=== PATIENT | female | born 1955 | race Caucasian/White ===

== ENCOUNTER 2017-05-19 16:20 | Inpatient (IN) ==
[2017-05-19] MEDS ORDERED: NS 1,000 ML IV ONE ×2 (17:31→22:20)
[2017-05-19] MEDS ORDERED: ONDANSETRON 4 MG/2 ML INJECTION IVP ONE (17:31)
[2017-05-19] MEDS ORDERED: KETOROLAC 30 MG/ML INJECTION IVP ONE (17:31)
[2017-05-19] MEDS: SALINE FLUSH 10ml SYRINGE IVF PRN (18:05)
[2017-05-19] MEDS ORDERED: IOHEXOL 300mg/ml 100ml INJECTION ONE (20:25)
[2017-05-19] MEDS ORDERED: NS 100 ML ONE (20:25)
[2017-05-19] MEDS ORDERED: SALINE FLUSH 10ml SYRINGE ONE (20:25)
[2017-05-19] MEDS ORDERED: HYDROMORPHONE 2 MG/ML INJECTION IVP ONE (21:21)
--- NOTE | 2017-05-19 21:25 | Emergency Department Report ---
Abdominal Pain HPI - General Chief Complaint: Abdominal Pain Stated Complaint: Severe Abdominal Pain Time Seen by Provider: 05/19/17 17:31 - History of Present Illness HPI narrative: 61-year-old female with onset of abdominal pain starting yesterday. She felt fine earlier in the morning yesterday, but by evening began developing cramping abdominal pain. Had one episode of diarrhea, no vomiting. She did have elevated temperature yesterday evening which seemed to resolve overnight. Now pain is increasing and has gone from 2 up until now it is an 8. She feels dehydrated. - Related Data Home Medications Medication Instructions Recorded Confirmed cetirizine 10 mg tablet 10 mg PO HS 04/27/17 05/19/17 doxycycline monohydrate 50 mg 50 mg PO HS 30 Days 04/27/17 05/19/17 capsule omega-3 fatty acids 500 mg capsule 1,000 mg PO HS #0 cap 04/27/17 05/19/17 Previous Rx's Medication Instructions Recorded sertraline 50 mg tablet 50 mg PO Q24H #90 tab 04/27/17 cyclobenzaprine 10 mg tablet 10 mg PO HS PRN #10 tab 05/14/17 naproxen 500 mg tablet 500 mg PO Q12H PRN #30 tab 05/14/17 Docusate Sodium [Colace] 100 mg PO BID capsule 05/23/17 Levofloxacin [Levaquin] 750 mg PO HS #7 tablet 05/23/17 MetroNIDAZOLE [Flagyl] 500 mg PO BIDWM #14 tablet 05/23/17 Allergies Allergy/AdvReac Type Severity Reaction Status Date / Time Penicillins Allergy Unknown Verified 05/20/17 00:06 amoxicillin Allergy Verified 05/20/17 00:06 Review of Systems All systems: reviewed and negative except as stated FOR[facility]LY [facility] Medical History (Last Updated 04/27/17 @ 18:38 by Marianne Voss APRN) Benign microscopic hematuria (Chronic Medical) Cancer of left breast (Chronic Medical) Hypercholesteremia (Chronic Medical) IFG (impaired fasting glucose) (Chronic Medical) Obesity (Chronic Medical) Osteopenia (Chronic Medical) Right radial head fracture (Resolved Medical) Surgical History: No abdominal surgery Family History: Family History Father , 67 Stomach cancer Mother , 99 CHF (congestive heart failure) HTN (hypertension) Sister Breast cancer - Social History Smoking status: Never smoker Substance use type: does not use Physical Exam - Limitations Limitations: no limitations - General General appearance: alert - Normal Exams: Head:: Normocephalic without trauma Chest/Respirations:: Clear all centeno, with good airflow, and symmetry bilaterally Cardiovascular:: Regular rate and rhythm, without murmur or gallop, Pulses 2+ all extremities, capillary refill, <2 seconds all extremities - Abdominal Exam Abdominal exam: Present: soft, distention, tenderness, diminished bowel sounds Course Vital Signs Temperature 98.3 F 05/19/17 16:25 Pulse Rate 106 H 05/19/17 16:25 Respiratory Rate 20 05/19/17 16:25 Blood Pressure 124/57 05/19/17 16:25 Pulse Oximetry 98 05/19/17 16:25 Temperature 98.3 F 05/19/17 16:25 Pulse Rate 110 H 05/19/17 20:30 Respiratory Rate 20 05/19/17 16:25 Blood Pressure 113/60 05/19/17 20:00 Pulse Oximetry 97 05/19/17 20:30 Abdominal Pain - MDM Narrative Medical decision making narrative: Patient has significant pain and discomfort. She also looks ill. Labs were obtained and x-ray completed. Free air noted under right diaphragm. CT abdomen obtained which shows perforated sigmoid diverticulitis with pneumoperitoneum. White count was normal. Patient was afebrile. Surgery was consulted.. Patient was given levofloxacin IV, also given Toradol 30 mg IV, Dilaudid 0.5 mg IV and Zofran 4 mg IV. Patient had repeat Dilaudid dose. Was transferred to surgical floor in relative comfort. - Differential Diagnosis Differential diagnosis: Likely: abdominal pain, acute appendicitis, calculus of kidney, constipation, diverticulitis, gastroenteritis, other, pancreatitis, small bowel obstruction - Medical Records Attestation: I reviewed the patient's medical records. - Lab Data Attestation: I reviewed the patient's lab results. Result diagrams: 05/22/17 04:15 05/20/17 06:26 Lab Results 05/19/17 05/19/17 05/19/17 Range/Units 18:04 18:04 19:06 WBC 17.0 H (4.5-11.0) T/MM3 RBC 4.36 (4.00-5.20) M/MM3 Hgb 13.1 (12-16) GM/DL Hct 39.3 (36-46) % MCV 90.1 (80-100) UM3 MCH 30.0 (26-34) UUG MCHC 33.3 (31-37) GM/DL RDW Std Deviation 42.8 (36.9-50.2) FL Plt Count 151 (130-400) T/MM3 MPV 10.4 (9.4-12.4) UM3 Immature Gran % (Auto) Not performed Neut % (Auto) Not performed Lymph % (Auto) Not performed [place] % (Auto) Not performed Eos % (Auto) Not performed Baso % (Auto) Not performed Neut # Not performed Lymph # Not performed Childress # Not performed Eos # Not performed Baso # Not performed Abs Immat Gran (auto) Not performed Neutrophils % (Manual) 75.0 H (33-66) % Band Neutrophils % 8.0 H (0-6) % Lymphocytes % (Manual) 8.0 L (23-45) % Reactive Lymphs % 6.0 H (0-0) % Monocytes % (Manual) 3.0 (0-9.0) % Neutrophils # (Manual) 12.8 H (1.8-7.7) T/MM3 Band Neutrophils # 1.4 T/MM3 Lymphocytes # (Manual) 1.4 (1-4.8) T/MM3 Abs React Lymphs (Man) 1.0 H (0-0) T/MM3 Monocytes # (Manual) 0.5 (0-0.8) T/MM3 RBC Morph Comment Normal Turbidity < 20 (0-20) Sodium 137 (134-144) MEQ/L Potassium 4.0 (3.6-5) MEQ/L Chloride 102 (98-107) MEQ/L Carbon Dioxide 27 (22-30) MEQ/L Anion Gap 8 (5-15) MEQ/L BUN 16.0 (7-17) MG/DL Creatinine 0.7 (0.7-1.2) MG/DL GFR Calculation 85 BUN/Creatinine Ratio 23 (6-26) RATIO Glucose 139 H (65-110) MG/DL Calculated Osmolality 267 (261-280) MOSM/KG Calcium 9.0 (8.4-10.2) MG/DL Total Bilirubin 0.90 (0.20-1.30) MG/DL Icterus Index < 2 (0-7) AST 19 (14-36) U/L ALT 41 (9-52) U/L Alkaline Phosphatase 66 (38-126) U/L Total Protein 7.0 (6.3-8.2) G/DL Albumin 4.3 (3.5-5.0) G/DL Globulin 2.7 (2.4-3.6) G/DL Albumin/Globulin Ratio 1.6 (1.1-2.2) RATIO Lipase 32 (23-300) U/L Specimen Hemolysis < 15 (0-25) Ur Collection Type Urine, clean catch Urine Color Yellow (YELLOW) Urine Clarity Clear Urine pH 7.0 (5.0-8.0) Ur Specific [place] 1.010 L (1.015-1.025) Urine Protein Trace A (NEGATIVE) Urine Glucose (UA) Negative (NEGATIVE) Urine Ketones Negative (NEGATIVE) Urine Occult Blood 1+ A (NEGATIVE) Urine Nitrate Negative (NEGATIVE) Urine Bilirubin Negative (NEGATIVE) Urine Urobilinogen 0.2 (NORMAL) EU/DL Ur Leukocyte Esterase Negative (NEGATIVE) Urine RBC 3-5 H (0-3) /HPF Urine WBC 0-1 (0-5) /HPF Ur Squamous Epith Cells 0-5 Urine Bacteria Trace H (NEGATIVE) Ur Culture Indicated? Cult not indicated - Radiology Data Attestation: I reviewed the patient's radiology results. Disposition Clinical Impression: perf, bowel perforation [place]: 02 [place] [facility] Condition: Stable Time of Disposition: 16:15 - Seen By: physician
[2017-05-19] MEDS: HYDROMORPHONE 2 MG/ML INJECTION IVP PRN (23:50)
[2017-05-19] MEDS ORDERED: METOCLOPRAMIDE 10mg/2ml INJECTION IVP PRN (23:53)
[2017-05-20] MEDS: LEVOFLOXACIN PB 750 MG/150 ML BAG IV SCH (00:51)
[2017-05-20] MEDS: MetroNIDAZOLE PB 500 MG/100 ML BAG IV SCH ×3 (00:52→23:48)
[2017-05-20] MEDS: LR 1,000 ML IV SCH ×4 (03:12→21:20)
[2017-05-20] MEDS: HYDROMORPHONE 2 MG/ML INJECTION IVP PRN ×4 (03:38→18:54)
[2017-05-20] MEDS: ONDANSETRON 4 MG/2 ML INJECTION IVP PRN ×2 (08:04→19:07)
[2017-05-20] MEDS: SALINE FLUSH 10ml SYRINGE IVF PRN (08:04)
--- NOTE | 2017-05-20 08:10 | CT Scan Report ---
Indication: Mid to lower abdominal pain and nausea for one day PROCEDURE: CT abdomen pelvis w con: Encounter: Initial Comparison: Renal CT dated May 22, 2011 Technique: Axial CT images were performed through the abdomen and pelvis after the administration of intravenous contrast. Coronal and sagittal two-dimensional reformats. Automated Exposure Control and Iterative Reconstruction dose reducing techniques were utilized. Contrast: Omnipaque 300 100 mL Findings: Mild atelectasis in the lung bases. There is significant free intraperitoneal air in the upper abdomen along of the liver margin and beneath the right hemidiaphragm. The liver shows small probable cysts along the gallbladder fossa region primarily. No enhancing liver mass or bile duct dilatation. The gallbladder is mildly distended but otherwise normal. The spleen, pancreas and adrenal glands are within normal limits. The kidneys are normal. Bilateral extrarenal pelves. Bladder is grossly normal. No significant free pelvic fluid. Uterus is unremarkable. There is inflammatory change and stranding surrounding the mid sigmoid colon with foci of extraluminal gas nearby. This is the apparent source of the perforation and free air. Air tracks along the mesentery into the ventral abdomen and omental area extending along the left paracolic gutter as well. No evidence of a bowel obstruction. Bone windows show mild degenerative change in the spine. Impression: Perforated sigmoid diverticulitis with pneumoperitoneum. Emergent surgical consultation is recommended. There is a preliminary report by [facility]. .
--- NOTE | 2017-05-20 08:20 | XRay Report ---
Indication: Abd pain PROCEDURE: XR KUB w upright: Encounter: Initial Comparison: CT abdomen and pelvis from the same date Findings: Moderate amount of free intraperitoneal air beneath the right hemidiaphragm. Air-fluid levels seen in the small bowel. Nonobstructive bowel gas pattern. Moderate stool in the colon. Mild degenerative change and scoliosis in the spine. Impression: Free intraperitoneal air consistent with a perforated viscus. Please see the abdominal CT report for further details. .
--- NOTE | 2017-05-20 12:33 | General Surg History&Physical ---
[facility] Medical History (Last Updated 04/27/17 @ 18:38 by Marianne Voss APRN) Benign microscopic hematuria (Chronic Medical) Cancer of left breast (Chronic Medical) Hypercholesteremia (Chronic Medical) IFG (impaired fasting glucose) (Chronic Medical) Obesity (Chronic Medical) Osteopenia (Chronic Medical) Right radial head fracture (Resolved Medical) Medical History Updates: Edits to Cancer of left breast (Chronic Medical): Onset: 12/07/2007. Comment: Treatment: mastectomy, chemotherapy, hormone therapy. Involved 1 lymph node. Oncologist: Dr. Rafat Meyer. Add: Stress incontinence (chronic). Shingles - 05/2013 (resolved). Bilateral elbow fractures (resolved). Left wrist fracture (resolved). Comment: in high school. Anxiety (Chronic) Surgical History: * Left modified radical mastectomy - 12/2007. * Colonoscopy [address] Adis Trejo. Reportedly normal. * Port-a-cath placement - 2007. Removed later. 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 Medications Home Medications Medication Instructions Recorded Confirmed Type cetirizine 10 mg tablet 10 mg PO HS 04/27/17 05/19/17 History doxycycline monohydrate 50 mg 50 mg PO HS 30 Days 04/27/17 05/19/17 History capsule omega-3 fatty acids 500 mg capsule 1,000 mg PO HS #0 cap 04/27/17 05/19/17 History Allergies Allergy/AdvReac Type Severity Reaction Status Date / Time Penicillins Allergy Unknown Verified 05/20/17 00:06 amoxicillin Allergy Verified 05/20/17 00:06 Review of Systems 10-point ROS: negative except for HPI and the following: - Genitourinary Genitourinary: Present: blood in urine (microscopic hematuria - has seen Dr. Hilario ), other (stress incontinence) - Psychiatric Psychiatric: Present: anxiety - Vital Signs Last Vital Signs Temp 98.2 F 05/20/17 07:39 Pulse 91 07/12/17 07:52 Resp 16 05/20/17 07:52 BP 121/56 05/20/17 07:39 Pulse Ox 95 05/20/17 07:52 - Laboratory Result Diagrams: 05/21/17 13:23 05/20/17 06:26 General Surgery Results - Results Labs: 05/20/17 03:49 05/20/17 06:26 Sepsis Assessment - Evaluation Sepsis screening result: Sepsis Risk Hospital Course Summary Disclaimer: The visit summary below is not to be considered part of the above Progress Note.
[2017-05-20] MEDS: KETOROLAC 30 MG/ML INJECTION IVP PRN ×2 (14:41→22:00)
[2017-05-20] MEDS ORDERED: CYCLOBENZAPRINE 10 MG TABLET PO PRN (17:29)
[2017-05-20] MEDS ORDERED: ACETAMINOPHEN 325 MG TABLET PO PRN (17:30)
[2017-05-20] MEDS: CETIRIZINE 10 MG TABLET PO SCH (21:57)
[2017-05-21] MEDS: ESZOPICLONE 2 MG TABLET PO PRN ×2 (00:02→22:53)
[2017-05-21] MEDS: LEVOFLOXACIN PB 750 MG/150 ML BAG IV SCH (01:02)
[2017-05-21] MEDS: ONDANSETRON 4 MG/2 ML INJECTION IVP PRN ×2 (03:00→23:18)
[2017-05-21] MEDS: HYDROMORPHONE 2 MG/ML INJECTION IVP PRN ×2 (03:03→08:20)
[2017-05-21] MEDS: LR 1,000 ML IV SCH ×6 (04:13→23:23)
[2017-05-21] MEDS: MetroNIDAZOLE PB 500 MG/100 ML BAG IV SCH ×2 (10:43→23:20)
[2017-05-21] MEDS ORDERED: LR 1,000 ML IV SCH (14:00)
--- NOTE | 2017-05-21 16:33 | History and Physical ---
DATE OF VISIT 05/20/2017 ATTENDING PHYSICIAN Baldemar Newton MD REASON FOR ADMISSION Perforated diverticulitis. HISTORY OF PRESENT ILLNESS Gricel is a 61-year-old female who had come to the emergency department for evaluation of abdominal pain. She had woken up about three in the morning and had noticed some lower abdominal pain. She thought that this was from a new medication that she had been taking since constipation was listed as a side effect. She said that she was going to skip her dose of medication when she woke up in the morning and went back to bed. When she awoke she felt like she could go to work but when she got to work she was lightheaded and ended up going home. She had increased abdominal pain and so she went home and contacted [facility]. They had recommended either convenient care or emergency department evaluation unless she wanted to wait to be seen the following day. She was having cramping pain and did have an episode of diarrhea. She did not have any vomiting. She felt like her pain was 8-9/10 in severity by the time she got to the emergency department. Workup there included a CBC that had shown a white blood cell count of 17.0. This prompted a CT scan of the abdomen and pelvis that showed free air on the preliminary report. I was contacted by the emergency department physician and accepted admission of the patient last evening by telephone. The patient had been hemodynamically stable by vital signs and after receiving a dose of Dilaudid she had told Dr. De Anda that she was in "a warm and happy place". She had received an additional bolus of fluid and heart rate had responded appropriately. PHYSICAL EXAMINATION VITAL SIGNS: See EMR report. GENERAL: The patient is awake and alert. She is in mild distress secondary to the pain. She is lying in the bed comfortably. HEENT: Sclerae clear. Extraocular muscles intact. NECK: Supple with a midline trachea. No lymphadenopathy or thyromegaly are noted. HEART: Regular rate and rhythm. LUNGS: Clear to auscultation bilaterally. ABDOMEN: Soft, obese, nondistended. She is tender in the lower quadrants but does not have any guarding or rebound noted. EXTREMITIES: No clubbing, cyanosis or edema. NEURO: Cranial nerves II-XII are grossly intact. PSYCHIATRIC: Normal mood and affect. LABORATORY DATA White blood cell count had decreased to 12.[address] scan the abdomen and pelvis was personally reviewed by me. It did show free air with air above the right diaphragm. There was some inflammation around the sigmoid colon. There was no significant fluid in the pelvis or evidence of abscess formation in the left lower quadrant. KUB was also personally reviewed by me from last night and there was free air in the right hemidiaphragm. IMPRESSION 1. Sepsis based on white blood cell count elevation and pulse greater than 90. 2. Perforated sigmoid diverticulitis with free air but no evidence of significant abdominal contamination. 3. Hypercholesterolemia - chronic. 4. Obesity - chronic with BMI of 31.5. PLAN 1. I think, given the patient's clinical picture, she would be an appropriate candidate for medical management. She has already been started on IV Levaquin and Flagyl due to her PENICILLIN ALLERGY. 2. I did offer her diagnostic laparoscopy with peritoneal lavage and possible drain placement. For now she is not interested in surgery as long as she continues to improve. 3. I did explain that if her symptoms worsen and she developed worsening tachycardia, hypotension, fever, or increasing white count, she may need operative intervention including surgery up to an open sigmoid resection with colostomy formation. 4. I will keep her n.p.o. 5. Continue IV fluids for resuscitation. 6. Monitor clinical progress. For additional components of the history and physical, see the electronic version entered into the EMR. ODILIA
--- NOTE | 2017-05-21 19:58 | Progress Note ---
DATE OF VISIT 05/21/2017 REASON FOR VISIT Follow perforated diverticulitis. SUBJECTIVE Gricel feels better today. She feels like her abdominal pain has subsided. She is thirsty. She has been ambulating. OBJECTIVE VITAL SIGNS: Temperature 99.0, pulse 69, blood pressure 121/63, respiratory rate 18, oxygen saturation 98% on 1 liter nasal cannula. GENERAL: The patient is awake and alert, in no acute distress. She is resting in bed. HEART: Regular rate and rhythm. LUNGS: Clear to auscultation bilaterally. ABDOMEN: Soft, minimally tender in the left lower quadrant and right lower quadrant. No guarding or rebound are noted. EXTREMITIES: No clubbing, cyanosis or edema. LABORATORY DATA White blood cell count has decreased to normal range at 9.5. She had 69.8% neutrophils. ASSESSMENT 1. Perforated sigmoid diverticulitis with free air - improving with IV antibiotics. 2. Sepsis - resolved with normalization of critical criteria. 3. Hypercholesterolemia - chronic. 4. Obesity - chronic. PLAN 1. Continue IV antibiotics. 2. Decrease IV fluids. 3. Since she continues to improve clinically I will start her on a clear liquid diet. 4. Monitor clinical progress. [email or web address]
[2017-05-21] MEDS: CETIRIZINE 10 MG TABLET PO SCH (23:15)
[2017-05-22] MEDS: LEVOFLOXACIN PB 750 MG/150 ML BAG IV SCH (00:52)
[2017-05-22] MEDS: LR 1,000 ML IV SCH ×2 (04:18→13:54)
[2017-05-22] MEDS: MetroNIDAZOLE PB 500 MG/100 ML BAG IV SCH (11:02)
[2017-05-22] MEDS ORDERED: DOCUSATE SODIUM 100 MG CAPSULE PO ONE (12:05)
[2017-05-22] MEDS ORDERED: BISACODYL 10 MG SUPPOSITORY RECTALLY PRN (12:07)
[2017-05-22] MEDS: DOCUSATE SODIUM 100 MG CAPSULE PO SCH (21:39)
[2017-05-22] MEDS: CETIRIZINE 10 MG TABLET PO SCH (21:39)
[2017-05-22] MEDS: ESZOPICLONE 2 MG TABLET PO PRN (21:40)
[2017-05-23] MEDS: LR 1,000 ML IV SCH ×2 (00:09→11:52)
[2017-05-23] MEDS: MetroNIDAZOLE PB 500 MG/100 ML BAG IV SCH ×2 (00:09→11:52)
[2017-05-23] MEDS: LEVOFLOXACIN PB 750 MG/150 ML BAG IV SCH (01:10)
[2017-05-23 07:47] VITALS: RESP 16
--- NOTE | 2017-05-23 09:29 | Progress Note ---
DATE OF VISIT 05/22/2017 REASON FOR VISIT Follow diverticulitis. OBJECTIVE Jeremy is doing well. She feels like her pain is totally resolved. She does feel bloated and is not wanting to advance her diet much today. Her nurse reports that they are having some difficulty encouraging her to ambulate in the halls. OBJECTIVE VITAL SIGNS: Temperature 98.4, pulse 88, blood pressure 137/67, respiratory rate 16, oxygen saturation 94% on room air. GENERAL: The patient is awake and alert, in no acute distress. HEART: Regular rate and rhythm. LUNGS: Clear to auscultation bilaterally. ABDOMEN: Soft, nontender, mildly distended, obese. LABORATORY DATA White blood cell count is normal at 7.7 with 61% neutrophils. ASSESSMENT 1. Perforated sigmoid diverticulitis with free air--continued clinical improvement. 2. Hypercholesterolemia--chronic. 3. Obesity--chronic. PLAN 1. Continue IV antibiotics for treatment of her diverticulitis since she is not advanced to a regular diet yet. 2. I will leave her IV fluids the same since she has not taken in much via the oral route. 3. I will advance her to a full liquid diet but not a regular diet based on her bloating. 4. Continue to follow progress tomorrow. 5. I will add docusate twice a day. 6. I will add a Dulcolax suppository daily p.r.n. to see if this will help stimulate a bowel movement. ODILIA
[2017-05-23] MEDS: DOCUSATE SODIUM 100 MG CAPSULE PO SCH (10:03)
[2017-05-23] MEDS ORDERED: MetroNIDAZOLE 500 MG TABLET PO SCH (12:00)
[2017-05-23 15:31] VITALS: BP 126/63; PULSE 60; TEMP 98.9; O2SAT 96
--- NOTE | 2017-05-23 15:52 | Discharge Instructions ---
Discharge Plan - [facility] Rec/Dispo Peng Instructions: Diverticulitis (DC), Diverticulitis Diet (DC) Prescriptions: New Docusate Sodium [Colace] 100 mg PO BID capsule Levofloxacin [Levaquin] 750 mg PO HS #7 tablet MetroNIDAZOLE [Flagyl] 500 mg PO BIDWM #14 tablet Continue doxycycline monohydrate 50 mg capsule 50 mg PO HS 30 Days cetirizine 10 mg tablet 10 mg PO HS naproxen 500 mg tablet 500 mg PO Q12H PRN #30 tab PRN Reason: pain, moderate cyclobenzaprine 10 mg tablet 10 mg PO HS PRN #10 tab PRN Reason: pain omega-3 fatty acids 500 mg capsule 1,000 mg PO HS #0 cap - Disposition 01 Discharged Home, Self-Care
[2017-05-23] MEDS ORDERED: LEVOFLOXACIN 750 MG TABLET PO SCH (18:00)
--- NOTE | 2017-05-23 19:40 | Progress Note ---
DATE OF VISIT 05/23/2017 REASON FOR VISIT Follow diverticulitis. OBJECTIVE Jeremy feels like she is doing well today. She denies pain. She has been walking in the halls. She has tolerated the full liquid diet and does feel like she could tolerate regular food. She did have a bowel movement. She has been passing flatus. OBJECTIVE VITAL SIGNS: Temperature 98.0, pulse 49, blood pressure 128/76, respiratory rate 16. Oxygen saturation 95% on room air. GENERAL: The patient is awake and alert in no acute distress. HEART: Bradycardic with irregular rhythm. LUNGS: No labored breathing. ABDOMEN: Soft, nontender, nondistended, obese. EXTREMITIES: No clubbing, cyanosis, or edema. IMPRESSION 1. Perforated sigmoid diverticulitis with free air--resolving appropriately. 2. Hypercholesterolemia--chronic. 3. Obesity--chronic. PLAN 1. Advance to a regular diet for lunch and see if she tolerates this. 2. Discontinue IV fluids. 3. If she does well with lunch, then I think she could be switched to oral antibiotics for another week and be sent home. 4. She will need a colonoscopy in about six weeks. ODILIA
--- NOTE | 2017-05-23 20:12 | Discharge Summary ---
ATTENDING PHYSICIAN Baldemar Newton MD REASON FOR ADMISSION Perforated diverticulitis. DISCHARGE DIAGNOSES 1. Perforated diverticulitis with free air. 2. Sepsis secondary to perforated diverticulitis. 3. Hypercholesterolemia--chronic. 4. Obesity with BMI of 31.5--chronic. CONSULTATIONS None. PROCEDURES None. BRIEF HOSPITAL COURSE The patient was admitted on the evening of 05/19/2017 after evaluation in the Emergency Department had shown free air on a CT scan. She was started on IV antibiotics with Levaquin and Flagyl due to her penicillin allergy. She had a nonsurgical abdomen in the Emergency Department and improved overnight by the time I first evaluated her on 05/20/2017. She opted for continued nonoperative management and observation. Her white count had decreased to 12.5 by hospital day #2. She was kept n.p.o. and was given IV fluids for resuscitation. On hospital day #3, she was feeling better and her white count had returned to the normal range. She was continued on IV antibiotics, but her IV fluids were decreased. She was started on a clear liquid diet. On hospital day #4, she continued to improve but was not quite ready for a regular diet so she was advanced to a full liquid diet. She had Colace started as well as a Dulcolax suppository, and this did stimulate a bowel movement. On hospital day #5, she was feeling much better and remained pain free. She was advanced to a regular diet and switched over to oral antibiotics. She was then dismissed home. DISPOSITION Home by private vehicle. CONDITION ON DISCHARGE Good. DISCHARGE INSTRUCTIONS DIET: Regular diet as tolerated. ACTIVITY: As tolerated. WOUND CARE None required. MEDICATIONS See discharge medical reconciliation. FOLLOWUP Patient should follow up with me in about one month to arrange a colonoscopy in six to eight weeks once her diverticulitis has fully resolved. Eighteen minutes of time was spent for coordination of discharge with education of the patient and her , completion of scripts, and discharge orders. ODILIA
== END 2017-05-23 17:30 | disposition home or self-care (01) | DRG 872 ==
LOC: ED 16:20 → SRG 23:21
PROVIDERS: ADMIT Surgery; ATTEND Surgery

== ENCOUNTER 2017-06-05 22:09 | Inpatient (IN) ==
[2017-06-05] MEDS ORDERED: NS 1,000 ML IV ONE (22:15)
[2017-06-05] MEDS ORDERED: LEVOFLOXACIN PB 750 MG/150 ML BAG IV ONE (22:15)
--- NOTE | 2017-06-05 22:15 | Emergency Department Report ---
Abdominal Pain HPI - General Stated Complaint: Abdominal Pain Time Seen by Provider: 06/05/17 22:14 Source: patient, family Mode of arrival: ambulatory Limitations: no limitations - History of Present Illness HPI narrative: Patient is a 62-year-old female, was recently hospitalized 05/19 for acute diverticulitis with perforation. Patient and surgeon decided on conservative management patient improved in the hospital with IV antibiotics patient was discharged home 05/23 with oral antibiotics which patient has now finished. Patient did well at home, however approximately noon today patient began to develop similar symptoms with left lower quadrant abdominal pain associated nausea and vomiting. Patient's had no fevers no chills decided present to the ER "early" for evaluation. MD complaint: abdominal pain Onset (ago): hour(s) Consistency: constant Location: LLQ Severity: similar to previous episodes Severity scale (1-10): 8 Quality: stabbing - Related Data Home Medications Medication Instructions Recorded Confirmed cetirizine 10 mg tablet 10 mg PO HS 04/27/17 06/05/17 doxycycline monohydrate 50 mg 50 mg PO HS 30 Days 04/27/17 06/05/17 capsule omega-3 fatty acids 500 mg capsule 1,000 mg PO HS #0 cap 04/27/17 06/05/17 Eszopiclone [Lunesta] 0.75 mg PO HS 06/05/17 06/05/17 Previous Rx's Medication Instructions Recorded sertraline 50 mg tablet 50 mg PO Q24H #90 tab 04/27/17 naproxen 500 mg tablet 500 mg PO Q12H PRN #30 tab 05/14/17 Docusate Sodium [Colace] 100 mg PO BID capsule 05/23/17 Allergies Allergy/AdvReac Type Severity Reaction Status Date / Time Penicillins Allergy Unknown Verified 06/05/17 22:52 amoxicillin Allergy Verified 06/05/17 22:52 Review of Systems Constitutional: Denies: fever, chills ENT: Denies: throat pain Cardiovascular: Denies: chest pain, palpitations Gastrointestinal: Reports: abdominal pain, nausea, vomiting. Denies: diarrhea, constipation, hematemesis Genitourinary: Denies: dysuria, frequency Neurological: Denies: headache PFSH Patient Stated Medical History Dental Problems Yes: mouth guard at night for TMD Other GI Yes: bowel perf currently Hx Incontinence Yes: stress incontinence Other Yes: microscopic hematuria Shingles Yes: mild case of shingles Other Reproductive Yes: breast CA 9.5 years ago Clinic Medical History (Last Updated 04/27/17 @ 18:38 by Marianne Voss APRN) Benign microscopic hematuria (Chronic Medical) Cancer of left breast (Chronic Medical) Hypercholesteremia (Chronic Medical) IFG (impaired fasting glucose) (Chronic Medical) Obesity (Chronic Medical) Osteopenia (Chronic Medical) Right radial head fracture (Resolved Medical) Medical History Updates: Edits to Cancer of left breast (Chronic Medical): Onset: 12/07/2007. Comment: Treatment: mastectomy, chemotherapy, hormone therapy. Involved 1 lymph node. Oncologist: Dr. Rafat Meyer. Add: Stress incontinence (chronic). Shingles - 05/2013 (resolved). Bilateral elbow fractures (resolved). Left wrist fracture (resolved). Comment: in high school. Anxiety (Chronic) Surgical History: No abdominal surgery Family History: Family History Father , 67 Stomach cancer Mother , 99 CHF (congestive heart failure) HTN (hypertension) Sister Breast cancer - Social History Smoking status: Never smoker Physical Exam - Limitations Limitations: no limitations - General General appearance: alert, in no apparent distress - Head Head exam: atraumatic - ENT ENT exam: Present: normal oropharynx, mucous membranes dry. Absent: mucous membranes moist - Neck Neck exam: Present: full ROM - Chest Chest inspection: Present: symmetric chest wall rise. Absent: tenderness - Respiratory Respiratory exam: Present: normal lung sounds bilaterally. Absent: respiratory distress, wheezes, stridor - Cardiovascular Cardiovascular exam: Present: regular rate, normal rhythm, normal heart sounds - Abdominal Exam Abdominal exam: Present: soft, tenderness. Absent: distention Abdominal tenderness: Present: LLQ, suprapubic - Extremities Exam Extremities exam: Present: full ROM. Absent: tenderness - Back Exam Back exam: Present: full ROM. Absent: tenderness - Skin Skin exam: Present: warm, dry, intact - Neurological Exam Neurological exam: Present: alert, oriented X3 - Psychiatric Psychiatric exam: Present: normal affect, normal mood Abdominal Pain - MDM Narrative Medical decision making narrative: Diverticulitis, gastroenteritis, sigmoid volvulus, urinary tract infection, pancreatitis - Differential Diagnosis Differential diagnosis: Likely: abdominal pain, acute appendicitis, calculus of kidney, constipation, diverticulitis, gastroenteritis, pancreatitis, small bowel obstruction - Medical Records Attestation: I reviewed the patient's medical records. - Lab Data Attestation: I reviewed the patient's lab results. Result diagrams: 06/05/17 22:22 06/05/17 22:22 - Radiology Data Attestation: I reviewed the patient's radiology results. CT scan shows significant worsening diverticulitis, no abscess, similar amount of free air to prior study Disposition Clinical Impression: Diverticulitis Qualifiers: Diverticulitis site: large intestine Diverticulitis bleeding: without bleeding Diverticulitis complication: with perforation and without abscess Qualified Code (s): K57.20 - Diverticulitis of large intestine with perforation and abscess without bleeding Disposition: 02 To [facility] Acute Care Condition: Improved - Seen By: physician
[2017-06-05] MEDS ORDERED: FentaNYL 100 MCG/2 ML INJECTION IVP ONE (22:31)
[2017-06-05] MEDS ORDERED: NS 100 ML ONE (22:56)
[2017-06-05] MEDS ORDERED: IOHEXOL 300mg/ml 100ml INJECTION ONE (22:56)
[2017-06-06] MEDS: MORPHINE SULFATE 4 MG SYRINGE IVP PRN ×3 (00:28→09:43)
[2017-06-06] MEDS: ONDANSETRON 4 MG/2 ML INJECTION IVP PRN ×4 (00:29→22:32)
[2017-06-06] MEDS: 1/2 NS with KCL 20mEq 1,000 ML IV SCH ×2 (00:42→12:35)
[2017-06-06] MEDS: MetroNIDAZOLE PB 500 MG/100 ML BAG IV SCH ×3 (00:46→16:15)
[2017-06-06 00:53] VITALS: BMI 30.4
--- NOTE | 2017-06-06 10:00 | General Surg History&Physical ---
[facility] Past Medical History: Benign microscopic hematuria (Chronic Medical) Cancer of left breast (Chronic Medical) Hypercholesteremia (Chronic Medical) IFG (impaired fasting glucose) (Chronic Medical) Obesity (Chronic Medical) Osteopenia (Chronic Medical) Right radial head fracture (Resolved Medical) Medical History Updates: Edits to Cancer of left breast (Chronic Medical): Onset: 12/07/2007. Comment: Treatment: mastectomy, chemotherapy, hormone therapy. Involved 1 lymph node. Oncologist: Dr. Rafat Meyer. Add: Stress incontinence (chronic). Shingles - 05/2013 (resolved). Bilateral elbow fractures (resolved). Left wrist fracture (resolved). Comment: in high school. Anxiety (Chronic). Perforated sigmoid diverticulitis (resolved). Onset: 05/19/2017. Comment: Hospitalized 05/19/2017-05/23/2017 Surgical History: * Left modified radical mastectomy - 12/2007. * Colonoscopy [address] Adis Trejo. Reportedly normal. * Port-a-cath placement - 2007. Removed later. 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 Medications Home Medications Medication Instructions Recorded Confirmed Type cetirizine 10 mg tablet 10 mg PO HS 04/27/17 06/05/17 History doxycycline monohydrate 50 mg 50 mg PO HS 30 Days 04/27/17 06/05/17 History capsule omega-3 fatty acids 500 mg capsule 1,000 mg PO HS #0 cap 04/27/17 06/05/17 History Eszopiclone [Lunesta] 0.75 mg PO HS 06/05/17 06/05/17 History Allergies Allergy/AdvReac Type Severity Reaction Status Date / Time Penicillins Allergy Unknown Verified 06/05/17 22:52 amoxicillin Allergy Verified 06/05/17 22:52 Review of Systems 10-point ROS: negative except for HPI - Vital Signs Last Vital Signs Temp 97.1 F 06/06/17 07:11 Pulse 100 06/06/17 07:26 Resp 16 06/06/17 07:11 BP 119/66 06/06/17 07:26 Pulse Ox 94 06/06/17 07:11 on Room Air - Laboratory Result Diagrams: 06/05/17 22:22 06/05/17 22:22 Sepsis Assessment - Evaluation Sepsis screening result: Sepsis Risk
[2017-06-06] MEDS: HYDROMORPHONE 2 MG/ML INJECTION IVP PRN ×4 (13:34→22:42)
[2017-06-06] MEDS: METOCLOPRAMIDE 10mg/2ml INJECTION IVP PRN ×2 (13:43→19:43)
--- NOTE | 2017-06-06 14:16 | History and Physical ---
ATTENDING PHYSICIAN Baldemar Newton MD REASON FOR ADMISSION Recurrent perforated diverticulitis. HISTORY OF PRESENT ILLNESS Jeremy is a 61-year-old female who had been hospitalized under my care from 05/19 to 05/23/2017. She was dismissed home with a week of oral antibiotics. The patient was doing very well at the time of dismissal and for the week of antibiotics. She also was doing well for the week following completion of her antibiotic course. She had been following a low-residue diet but had been using Colace and a fiber supplement. She was eating fairly simple foods like white bread and scrambled eggs. She had begun to liberalize her diet. The patient started developing some mild symptoms in the lower abdomen on the morning of 06/05/2017. She describes it as simply feeling uncomfortable. She had more symptoms by the afternoon, but she feels that her true pain developed after dinner last evening. She had eaten a pork chop and sweet potatoes. Her pain became sharp and crampy in nature, and it increased to 9 to 10 out of 10 in severity. She tried using Naproxen, but this did not help. She developed nausea and then vomiting. With the worsening of her pain and the vomiting which became more of intractable vomiting, she decided that she should present to the Emergency Department via EMS. She was evaluated in the Emergency Department including a repeat CT scan of the abdomen and pelvis. Preliminary report showed increased inflammation in the region of the sigmoid colon and some ongoing free air but decreased amount. She was then admitted to the hospital given the CT findings. No abscess was seen on the CT scan. This morning she feels like her nausea is better. She still feels very uncomfortable, but she did not feel like the area is painful if she is lying in bed. She does have symptoms constantly. The morphine has been helping with her pain, and she rates her symptoms this morning as 2 to 4 out of 10 in severity. Her last bowel movement was yesterday, and she had two fairly normal bowel movements. PHYSICAL EXAMINATION VITAL SIGNS: See EMR. GENERAL: The patient is awake and alert, in no acute distress. She is lying in bed comfortably. HEENT: Sclerae are clear. Extraocular muscles intact. NECK: Supple with a midline trachea. No lymphadenopathy or thyromegaly are noted. HEART: Regular rate and rhythm. LUNGS: Clear to auscultation bilaterally. ABDOMEN: Soft, obese, nondistended. She does have tenderness most predominantly in the left lower quadrant. She has no guarding but some rebound tenderness is noted. EXTREMITIES: No clubbing, cyanosis, or edema. NEUROLOGIC: Cranial nerves II-XII are grossly intact. PSYCHIATRIC: Normal mood and affect. LABORATORY DATA See electronic report. IMAGING CT scan of the abdomen and pelvis was personally reviewed by me. There was trace free air throughout the anterior abdomen and in the area of more significant inflammation around the sigmoid colon. There was some free fluid in the pelvis but no evidence of abscess formation. There was a fair amount of stool in the right colon. IMPRESSION 1. Recurrent perforated sigmoid diverticulitis with trace free air but more significant inflammation then prior hospital admission. 2. Hypercholesterolemia--chronic. 3. Obesity--chronic with BMI of 30.7. PLAN 1. IV antibiotics with Levaquin and Flagyl have already been started. I am continuing with the same regimen because of her penicillin allergy. 2. Continue n.p.o. but I will allow sips of water and ice chips. 3. IV fluids for rehydration. 4. I did discuss with the patient, her , and her daughter the possible course from here. She still potentially is a candidate for medical management since her CT scan shows less free air, even though there is more significant inflammation. No abscess was noted so no percutaneous drain is needed at this point in time. I did explain that if her symptoms worsened she would need to go to surgery, which would almost guarantee a Aliya's procedure with colostomy formation. I am still hopeful that she can be managed nonoperatively even with this episode of recurrent diverticulitis. 5. Recheck lab in a.m. and follow clinical progress. For additional components of the History and Physical, see the electronic version generated in the EMR. MTDD
[2017-06-06] MEDS: LEVOFLOXACIN PB 750 MG/150 ML BAG IV SCH (20:32)
[2017-06-07] MEDS: MetroNIDAZOLE PB 500 MG/100 ML BAG IV SCH ×3 (00:56→15:49)
[2017-06-07] MEDS: 1/2 NS with KCL 20mEq 1,000 ML IV SCH ×3 (01:07→15:29)
[2017-06-07] MEDS: HYDROMORPHONE 2 MG/ML INJECTION IVP PRN ×2 (06:29→14:21)
[2017-06-07] MEDS: METOCLOPRAMIDE 10mg/2ml INJECTION IVP PRN ×2 (06:30→14:20)
--- NOTE | 2017-06-07 10:06 | CT Scan Report ---
Indication: history of perfed diverticulitis?no operation, recurrence? PROCEDURE: CT abdomen pelvis w con: Encounter: Initial Comparison: CT abdomen dated May 19, 2017 Technique: Axial CT images were performed through the abdomen and pelvis after the administration of intravenous contrast. Coronal and sagittal two-dimensional reformats. Automated Exposure Control and Iterative Reconstruction dose reducing techniques were utilized. Contrast: Omnipaque 300 100 mL Findings: The lung bases are clear. Small liver cysts. The prior free intraperitoneal air in the upper abdomen has resolved. Gallbladder is mildly distended. The spleen, pancreas and adrenal glands are within normal limits. Kidneys are stable. No abdominal or pelvic lymphadenopathy. Bladder is normal. Uterus and ovaries are unremarkable. There are a few foci of free air around the uterus and left ovary. Some small areas of free air in the left paracolic gutter. There is significant inflammatory change surrounding the mid sigmoid colon which is more prominent than the comparison study. There are foci of extraluminal gas present with severe inflammatory stranding but no defined rim-enhancing or drainable abscess. Appendix is normal. No small bowel obstruction. Bone windows are unchanged. Impression: Severe acute sigmoid diverticulitis with evidence of a microperforation. No drainable abscess. Surgical consultation is recommended. There is a preliminary report by [facility] (formerly [employer]). .
[2017-06-07] MEDS: ONDANSETRON 4 MG/2 ML INJECTION IVP PRN (10:32)
[2017-06-07] MEDS ORDERED: BISACODYL 10 MG SUPPOSITORY RECTALLY PRN (16:29)
[2017-06-07] MEDS: IBUPROFEN 600 MG TABLET PO SCH (20:36)
[2017-06-07] MEDS: ACETAMINOPHEN 500 MG TABLET PO SCH (20:36)
[2017-06-07] MEDS: LEVOFLOXACIN PB 750 MG/150 ML BAG IV SCH (20:36)
[2017-06-07] MEDS ORDERED: DOCUSATE SODIUM 100 MG CAPSULE PO SCH (21:00)
[2017-06-07] MEDS ORDERED: ESZOPICLONE PO SCH (22:00)
[2017-06-07] MEDS: CETIRIZINE 10 MG TABLET PO SCH (22:51)
[2017-06-07] MEDS: ESZOPICLONE 3 MG TABLET PO SCH (22:52)
[2017-06-08] MEDS: MetroNIDAZOLE PB 500 MG/100 ML BAG IV SCH ×3 (00:24→17:06)
[2017-06-08] MEDS: 1/2 NS with KCL 20mEq 1,000 ML IV SCH ×2 (03:53→17:56)
--- NOTE | 2017-06-08 07:23 | Progress Note ---
DATE OF VISIT 06/07/2017 REASON FOR VISIT Follow diverticulitis. SUBJECTIVE Jeremy is feeling better with regards to pain. She does feel slightly more bloated. She has not had a bowel movement since being at the hospital. She only required one dose of pain medicine this afternoon and that is all that she has received today. She has had nausea but mostly related to pain medication. OBJECTIVE VITAL SIGNS: Temperature 96.9 (she has been afebrile), pulse 87, blood pressure 117/63, respiratory rate 16, oxygen saturation 95% on room air. GENERAL: The patient is awake, alert, in no acute distress. ABDOMEN: Soft, tender mostly in the left lower quadrant but some in the right lower quadrant. There is mild rebound tenderness but no guarding anywhere throughout the abdomen. She is nontender in the upper abdomen. EXTREMITIES: No clubbing, cyanosis or edema. LABORATORY DATA White blood cell count has increased from 14 to 15.5. She has 84% neutrophils. ASSESSMENT 1. Recurrent perforated sigmoid diverticulitis with microperforation. Clinically her pain level is improving though white count was slightly worse. 2. Hypercholesterolemia - chronic. 3. Obesity - chronic. PLAN 1. I will start oral Tylenol and ibuprofen to try to help with pain control. Hopefully this will alleviate the need for narcotics. 2. Advance to clear liquids since it does not seem that surgery is going to be mandated currently. 3. Continue antibiotics. 4. Add Dulcolax suppositories p.r.n. and Colace twice daily for bowel regimen. 5. Recheck tomorrow. [facility] HOSPITALFernando
[2017-06-08] MEDS: IBUPROFEN 600 MG TABLET PO SCH ×3 (08:37→21:00)
[2017-06-08] MEDS: DOCUSATE SODIUM 100 MG CAPSULE PO SCH ×2 (08:37→20:59)
[2017-06-08] MEDS: ACETAMINOPHEN 500 MG TABLET PO SCH ×3 (08:38→20:59)
[2017-06-08] MEDS: CETIRIZINE 10 MG TABLET PO SCH (20:59)
[2017-06-08] MEDS: ESZOPICLONE 3 MG TABLET PO SCH (21:00)
[2017-06-08] MEDS: LEVOFLOXACIN PB 750 MG/150 ML BAG IV SCH (21:00)
[2017-06-08] MEDS ORDERED: ESZOPICLONE 3 MG TABLET PO SCH (22:00)
[2017-06-09] MEDS: MetroNIDAZOLE PB 500 MG/100 ML BAG IV SCH ×2 (00:05→09:08)
[2017-06-09 07:30] VITALS: BP 152/76; PULSE 71; RESP 16; TEMP 97.7; O2SAT 99
[2017-06-09] MEDS: IBUPROFEN 600 MG TABLET PO SCH (09:07)
[2017-06-09] MEDS: DOCUSATE SODIUM 100 MG CAPSULE PO SCH (09:07)
[2017-06-09] MEDS: ACETAMINOPHEN 500 MG TABLET PO SCH (09:07)
--- NOTE | 2017-06-09 11:29 | Progress Note ---
DATE OF VISIT 06/08/2017 REASON FOR VISIT Follow diverticulitis. SUBJECTIVE Jeremy is feeling much better today. She has not used any pain medication today other than the scheduled Tylenol and ibuprofen. She has been walking. She did have a bowel movement. She has been tolerating a clear liquid diet well and is wondering about advance of her diet. SUBJECTIVE VITAL SIGNS: Temperature 96.9, pulse 80, blood pressure 115/69, respiratory rate 18, oxygen saturation 96% on room air. GENERAL: The patient is awake, alert, in no acute distress. HEART: Regular rate and rhythm. LUNGS: Clear to auscultation bilaterally. ABDOMEN: Soft, much less tender in the left lower quadrant with resolution of rebound tenderness. There is no guarding noted. EXTREMITIES: No clubbing, cyanosis or edema. LABORATORY DATA White blood cell count decreased to 7.8. ASSESSMENT 1. Recurrent perforated sigmoid diverticulitis with microperforation - clinically improving. Her white count has also returned to normal. 2. Hypercholesterolemia - chronic. 3. Obesity - chronic. PLAN 1. Advanced to a regular diet. 2. Discontinue IV fluids. 3. Continue IV antibiotics. 4. I think she will need monitoring until tomorrow to be sure that she is improving appropriately. 5. Recheck lab tomorrow. ADRIANED
--- NOTE | 2017-06-09 14:03 | Discharge Instructions ---
Discharge Plan - Med Rec/Dispo Referrals/Follow Up: Marianne Voss APRN [Family Provider] - Peng Instructions: Diverticulitis (DC) Prescriptions: New Ibuprofen [Motrin] 600 mg PO TID tablet Acetaminophen [Tylenol] 1,000 mg PO TID tablet Continue Docusate Sodium [Colace] 100 mg PO BID capsule Eszopiclone [Lunesta] 0.75 mg PO HS doxycycline monohydrate 50 mg capsule 50 mg PO HS 30 Days cetirizine 10 mg tablet 10 mg PO HS naproxen 500 mg tablet 500 mg PO Q12H PRN #30 tab PRN Reason: pain, moderate omega-3 fatty acids 500 mg capsule 1,000 mg PO HS #0 cap - Disposition 01 Discharged Home, Self-Care
--- NOTE | 2017-06-09 14:13 | Discharge Instructions ---
Discharge Plan - Med Rec/Dispo Referrals/Follow Up: Marianne Voss APRN [Family Provider] - Peng Instructions: Diverticulitis (DC) Prescriptions: New Ibuprofen [Motrin] 600 mg PO TID tablet MetroNIDAZOLE [Flagyl] 500 mg PO Q8H #42 tablet Acetaminophen [Tylenol] 1,000 mg PO TID tablet Levofloxacin [Levaquin] 750 mg PO DAILY #14 tablet Continue Docusate Sodium [Colace] 100 mg PO BID capsule Eszopiclone [Lunesta] 0.75 mg PO HS doxycycline monohydrate 50 mg capsule 50 mg PO HS 30 Days cetirizine 10 mg tablet 10 mg PO HS naproxen 500 mg tablet 500 mg PO Q12H PRN #30 tab PRN Reason: pain, moderate omega-3 fatty acids 500 mg capsule 1,000 mg PO HS #0 cap - Disposition 01 Discharged Home, Self-Care
--- NOTE | 2017-06-12 10:19 | Progress Note ---
DATE OF VISIT 06/09/2017 REASON FOR VISIT Follow diverticulitis. SUBJECTIVE Jeremy is doing well today. She feels like her pain continues to subside. She has been walking more. She has tolerated the regular diet. She has had a few more bowel movements. OBJECTIVE VITAL SIGNS: Temperature 97.7, pulse 71, blood pressure 152/76, respiratory rate 16, oxygen saturation 99% on room air. GENERAL: The patient is awake and alert in no acute distress. She is dressed and seated in the chair. ABDOMEN: Soft, minimally tender in the left lower quadrant with no guarding or rebound. HEART: Regular rate and rhythm. LUNGS: Clear to auscultation bilaterally. LABORATORY DATA White blood cell count remains normal at 7.8 with 72.8% neutrophils. ASSESSMENT 1. Recurrent perforated sigmoid diverticulitis - clinically improving. She seems ready for dismissal. 2. Hypercholesterolemia - chronic. 3. Obesity - chronic. PLAN 1. I do think Jeremy is ready for dismissal. 2. See discharge instructions and discharge summary. 3. I will give her a 2-week course of oral antibiotics. ODILIA
--- NOTE | 2017-06-12 13:47 | Discharge Summary ---
DISCHARGE DIAGNOSES 1. Recurrent perforated diverticulitis with micro perforation 2. Hypercholesterolemia - chronic. 3. Obesity with BMI of 30.7 - chronic. CONSULTATIONS None. PROCEDURES None. BRIEF HOSPITAL COURSE The patient was admitted on the evening of 06/05/2017. She had been evaluated in the emergency department for worsening pain and CT scan had shown increased inflammation around the sigmoid colon along with some residual trace free air in the abdomen. She was started on Levaquin IV and Flagyl IV again due to her PENICILLIN ALLERGY. I evaluated the patient on the morning of 06/06/2017 and she did appear to have a nonsurgical abdomen. Her white count was 14.0. She was kept n.p.o. but was started on sips of water and ice chips. She had SCDs for DVT prophylaxis. On hospital day #3, the patient was feeling better with regards to pain and was decreasing in her requirements for pain medication. She was advanced to a clear liquid diet. On hospital day #4, she was advanced to a regular diet since she continued to improve and had had a bowel movement. On hospital day #5, the patient was doing well and was tolerating a regular diet without problems. She was continuing to feel better and was ready for dismissal. DISPOSITION Home by private vehicle. CONDITION ON DISCHARGE Good. DISCHARGE INSTRUCTIONS DIET She was advised to avoid raw vegetables and bulky undigestible plant fiber. ACTIVITY No restrictions. WOUND CARE None required. MEDICATION See discharge medical reconciliation. FOLLOWUP The patient should follow up with Dr. Newton in about a month to discuss a colonoscopy after six weeks. ODILIA
== END 2017-06-09 14:30 | disposition home or self-care (01) | DRG 392 ==
LOC: ED 22:09 → SRG 23:49
PROVIDERS: ADMIT Surgery; ATTEND Surgery

== ENCOUNTER 2017-07-24 01:40 | Inpatient (IN) ==
[2017-07-24] MEDS: NS 1,000 ML IV SCH ×2 (02:50→13:06)
[2017-07-24] MEDS ORDERED: ONDANSETRON 4 MG/2 ML INJECTION IVP PRN (02:50)
[2017-07-24] MEDS: HYDROMORPHONE 2 MG/ML INJECTION IVP PRN ×4 (03:15→13:31)
[2017-07-24 05:48] VITALS: BMI 29.2
[2017-07-24] MEDS ORDERED: LEVOFLOXACIN PB 750 MG/150 ML BAG IV SCH (06:00)
[2017-07-24] MEDS ORDERED: ALVIMOPAN 12 MG CAPSULE PO ONE (06:01)
[2017-07-24] MEDS ORDERED: MetroNIDAZOLE PB 500 MG/100 ML BAG IV SCH (06:15)
[2017-07-24] MEDS ORDERED: BUPIVACAINE 0.25%/EPI 1:200,000 30ml SDV INJ ONE (06:28)
[2017-07-24] MEDS ORDERED: IOHEXOL 300mg/ml 50ml INJECTION IV ONE (06:28)
[2017-07-24] MEDS ORDERED: LIDOCAINE 1% (10mg/ml) 30ml SDV INJ INJ ONE (06:28)
[2017-07-24] MEDS: LR 1,000 ML IV SCH ×5 (06:35→22:38)
[2017-07-24] MEDS ORDERED: SALINE FLUSH 10ml SYRINGE ONE (06:59)
[2017-07-24] MEDS ORDERED: VECURONIUM 10 MG/10 ML VIAL IV ONE ×2 (07:00→08:55)
[2017-07-24] MEDS ORDERED: FentaNYL 100 MCG/2 ML INJECTION ONE ×2 (07:00→08:11)
[2017-07-24] MEDS ORDERED: PROPOFOL 20 ML ONE (07:01)
[2017-07-24] MEDS ORDERED: DEXAMETHASONE 4 MG/ML INJECTION ONE (07:42)
[2017-07-24] MEDS ORDERED: ONDANSETRON 4 MG/2 ML INJECTION ONE (07:42)
--- NOTE | 2017-07-24 08:00 | Anesthesia Preoperative Report ---
Anesthesia Preoperative Record - Date and Time Date: 07/24/17 Preoperative Diagnosis: Diverticulitis with abscess NPO Since Date: 07/23/17 NPO Since Time: 22:00 Allergies/Adverse Reactions: Allergies Allergy/AdvReac Type Severity Reaction Status Date / Time Penicillins Allergy Unknown Verified 07/03/17 09:03 amoxicillin Allergy Verified 07/03/17 09:03 - Vital Signs Vital Signs: Temperature 98.8 F 07/24/17 06:30 Pulse Rate 110 H 07/24/17 06:45 Respiratory Rate 18 07/24/17 06:30 Blood Pressure 145/88 H 07/24/17 06:30 Pulse Oximetry 93 07/24/17 06:30 Height and Weight: Height 1.7 m Weight 84.9 kg Body Mass Index 29.2 - Medications Inpatient Medications: Current Medications Hydromorphone HCl (Dilaudid) 0.5 - 1 mg IVP Q1H PRN PRN Reason: Pain Last Admin: 07/24/17 05:44 Dose: 0.5 mg Sodium Chloride (Normal Saline) 1,000 mls @ 125 mls/hr IV .Q8H [facility] Last Infusion: 07/24/17 06:15 Dose: 0 mls/hr Levofloxacin/Dextrose (Levaquin Premix) 750 mg in 150 mls @ 100 mls/hr IV O LAURENT Metronidazole/Sodium Chloride (Flagyl Iv Premix) 500 mg in 100 mls @ 100 mls/ hr IV ONE TIME [facility] Last Admin: 07/24/17 06:24 Dose: 100 mls/hr Lactated Ringer's (Lactated Ringers) 1,000 mls @ 125 mls/hr IV .Q8H [facility] Last Admin: 07/24/17 06:35 Dose: 125 mls/hr Ondansetron HCl (Zofran) 4 mg IVP Q6H PRN PRN Reason: Nausea &/or vomiting Home Medications: Home Medications Medication Instructions Recorded Confirmed Type Zyrtec (Cetirizine) 10 mg tablet 10 mg PO HS 04/27/17 07/24/17 History doxycycline monohydrate 50 mg 50 mg PO HS 30 Days #30 04/27/17 07/24/17 History capsule omega-3 fatty acids 500 mg capsule 1,000 mg PO HS #0 cap 04/27/17 07/24/17 History Is Patient on Beta Susana?: No - Medical History Cardiovascular: Reports: High Cholesterol Gastrointestional: Reports: Other (over weight) Renal/Endocrine: Reports: Other (impaired fasting glucose) Other History: Reports: Cancer (breast, s/p left mastectomy) - Surgical History Musculoskeletal Surgery/Tx: Reports: Other (right radical head fx) Anesthesia Reactions: Other (" slow to wake up ") Hx Family Anesthesia Reaction: No History of Motion Sickness: No - Social History Smoking Status: Never smoker Hx Chewing Tobacco Use: No Substance Use Type: does not use Alcohol Intake: current Alcohol Intake Frequency: does not drink - Physical Exam Respiratory Exam: Present: lungs clear, bilateral breath sounds equal Cardiovascular Exam: Present: regular rate and rhythm - Airway Assessment Mallampati Score: II TMD: 3 Fingerbreadths Neck Extension: fair Teeth: chipped teeth/crowns Overall Assessment: no airway concerns - ASA ASA Score: 2 - Plan Anesthesia: General Inhalation Gases - Discussion Discussion: Discussed risks/options/alternatives of anesthesia and questions answered. Patient consents. Nursing pain assessment noted. Present for Discussion: family member Attestation Statement: Prior to the delivery of any anesthetic medication, I examined the patient, developed the plan, obtained the patient's consent and discussed the risk and benefits of the procedure with the patient/guardian. - Additional Information Seen by Anesthesia: Yes
[2017-07-24] MEDS ORDERED: HYDROMORPHONE 2 MG/ML INJECTION ONE (08:22)
[2017-07-24] MEDS ORDERED: INDOCYANINE GREEN 25mg INJECTION ONE (09:04)
[2017-07-24] MEDS ORDERED: LIDO 1% 30ml/BUPIV 0.25%-EPI 1:200T 30ml MIXTURE (60ml total) ID ONE (09:19)
[2017-07-24] MEDS ORDERED: INDOCYANINE GREEN 25mg INJECTION IVP ONE (09:20)
[2017-07-24] MEDS ORDERED: SUGAMMADEX 200mg/2ml INJECTION IVP ONE (09:58)
[2017-07-24] MEDS ORDERED: METOCLOPRAMIDE 10mg/2ml INJECTION IVP PRN (10:59)
--- NOTE | 2017-07-24 11:04 | General Surgery Procedure Note ---
Date of Procedure: 07/24/17 Surgeon: Lamar Armored Cable Machine Operator: Joe Anesthesia: General Inhalation Gases ASA Score: 2 Postoperative Diagnosis: Chronic sigmoid diverticulosis with perforation and chronic intraabdominal abscess Procedure: Exploratory laparotomy with segmental sigmoid colon resection with anastomosis
[2017-07-24] MEDS ORDERED: DiphenhydrAMINE 50 MG/ML INJECTION IVP ONE (11:14)
[2017-07-24] MEDS ORDERED: SCOPOLAMINE 1.5 MG PATCH TD SCH (11:15)
--- NOTE | 2017-07-24 12:05 | Anesthesia Postoperative Note ---
- Date and Time Date: 07/24/17 Time: 12:04 - Status Patient Participated in Evaluation: Patient Participated in Person Vital Signs: Temperature 97.5 F 07/24/17 10:53 Pulse Rate 100 07/24/17 11:45 Respiratory Rate 16 07/24/17 11:45 Blood Pressure 132/66 07/24/17 11:45 Pulse Oximetry 98 07/24/17 11:45 Respiratory Function: Airway Patent, Regular Respirations Cardiovascular Function: Regular Pulse Mental Status: Alert and Oriented Pain Intensity: 5 Hydration: IV Infusing Complications During Recover: None Apparent - Follow-Up Instructions Instructions: Per Surgeon
[2017-07-24] MEDS ORDERED: HYDROMORPHONE PCA 30mg/30ml VIAL IV PRN (12:25)
[2017-07-24] MEDS: MetroNIDAZOLE PB 500 MG/100 ML BAG IV SCH ×2 (12:41→22:35)
--- NOTE | 2017-07-24 12:46 | Operative Note ---
DATE OF OPERATION 07/24/2017 PREOPERATIVE DIAGNOSIS Diverticulitis. POSTOPERATIVE DIAGNOSIS Diverticulitis. OPERATION PERFORMED Placement of bilateral lighted ureteral stents. SURGEON Iain Arredondo MD COMPLICATIONS None for urology portion of the case. BLEEDING None for the urology portion of the case. INDICATIONS FOR THE PROCEDURE This is a 62-year-old female who is undergoing exploratory laparotomy today with Dr. Newton. Dr. Newton requested Urology to place bilateral lighted stents prior to the procedure. I met the patient in the preop holding area and explained my part and she agreed to proceed. DESCRIPTION OF THE PROCEDURE Patient was identified in the preoperative holding area. The procedure was explained to her and she agreed to proceed. She was taken back to the operating room where she was placed supine on the operating room table. General anesthesia was induced. She was then placed in the dorsal lithotomy position. Genitalia were prepped and draped in the usual fashion. At this time , a formal time-out was done, all the persons in the room were in agreement. I started the procedure by introducing a cystoscope into the bladder. The two ureteral orifices were identified and were orthotopic in position. I began by placing the lighted ureteral stent in the left ureteral orifice. This was done over a sensor wire. The stent was advanced until the double line tanisha. I then removed my cystoscope, making sure the stent was still in the ureter. I repeated this same procedure for the right ureter. In a similar way, I placed a lighted ureteral stent over a sensor wire up to the double line tanisha and then removed my cystoscope. I then introduced my 16-Beninese Wright in the bladder. I then placed two electrodes inside each of the stents. The two stents were then secured to the Wright with silk suture. This concluded the urology portion of the case. The care of the patient was turned back to Dr. Newton to perform his part of the procedure. ODILIA
[2017-07-24] MEDS: ACETAMINOPHEN 500 MG TABLET PO SCH ×2 (14:38→22:37)
[2017-07-24] MEDS: KETOROLAC 30 MG/ML INJECTION IVP PRN ×2 (16:18→22:43)
[2017-07-24] MEDS ORDERED: ALPRAZolam 0.25 MG TABLET PO PRN (20:46)
[2017-07-24] MEDS ORDERED: ESZOPICLONE PO SCH (21:00)
[2017-07-24] MEDS ORDERED: SERTRALINE 50 MG TABLET PO SCH (21:00)
[2017-07-24] MEDS: CETIRIZINE 10 MG TABLET PO SCH (22:38)
[2017-07-24] MEDS: DOCUSATE SODIUM 100 MG CAPSULE PO SCH (22:38)
[2017-07-24] MEDS: ESZOPICLONE 3 MG TABLET PO SCH (22:42)
[2017-07-25] MEDS: KETOROLAC 30 MG/ML INJECTION IVP PRN ×3 (05:35→21:01)
[2017-07-25] MEDS: ACETAMINOPHEN 500 MG TABLET PO SCH ×3 (05:36→22:03)
[2017-07-25] MEDS: MetroNIDAZOLE PB 500 MG/100 ML BAG IV SCH ×3 (05:36→21:06)
[2017-07-25] MEDS: LR 1,000 ML IV SCH ×4 (07:21→20:58)
[2017-07-25] MEDS: DOCUSATE SODIUM 100 MG CAPSULE PO SCH ×2 (09:04→22:04)
[2017-07-25] MEDS: ENOXAPARIN 40 MG/0.4 ML INJECTION SQ SCH (09:05)
[2017-07-25] MEDS: SERTRALINE 50 MG TABLET PO SCH (09:05)
[2017-07-25] MEDS: LEVOFLOXACIN PB 750 MG/150 ML BAG IV SCH (09:15)
--- NOTE | 2017-07-25 14:36 | Progress Note ---
DATE OF VISIT 07/25/2017 REASON FOR VISIT Postoperative followup. SUBJECTIVE Jeremy had some itching overnight last night but her itching is improved with Benadryl. She does still note some mild itching but says it is very tolerable. She has tolerated her clear liquid diet this morning. Pain has been controlled with her MARKETING SUPPORT MANAGER and she is using it less and less frequently. OBJECTIVE VITAL SIGNS: Afebrile with stable vital signs. GENERAL: The patient is awake, alert, in no acute distress. ABDOMEN: Soft, appropriately tender. Her dressing is clean, dry and intact. ASSESSMENT Postop day #1 status post exploratory laparotomy with sigmoid colon resection and stapled anastomosis - doing well. PLAN 1. Encouraged ambulation today. 2. Advance to full liquid diet tomorrow. 3. Follow clinical progress. 4. Despite her itching developing during Flagyl administration, I would like to keep her on Flagyl since she had so many possible medications that could have led to her mild reaction. She has been taking Flagyl for some length of time and I would worry about eliminating another antibiotic from her possible treatment in the future. The patient was in agreement with this since symptoms were mild. ADRIANED
--- NOTE | 2017-07-25 15:12 | Operative Note ---
DATE OF OPERATION 07/24/2017 SURGEON Baldemar Newton MD FURNACE INSTALLER HELPER Neo Diaz MD PREOPERATIVE DIAGNOSIS Chronic sigmoid diverticulitis with perforation and chronic intraabdominal abscess. POSTOPERATIVE DIAGNOSIS Chronic sigmoid diverticulitis with perforation and chronic intraabdominal abscess. PROCEDURE Exploratory laparotomy with segmental sigmoid colon resection with [id number] functional end-to-end stapled anastomosis. ANESTHESIA General. ASA Classification 2 INDICATIONS The patient is a 62-year-old female who had been hospitalized twice for sigmoid diverticulitis with an intraabdominal abscess. She had been managed with oral antibiotics on an outpatient basis but was worsening. She had a CT scan on that showed a fistulous connection from her abscess cavity into the sigmoid colon. Based on her CT findings and her lack of improvement it was felt that she needed sigmoid colon resection. FINDINGS The sigmoid colon did have evidence of perforation into the abscess cavity. Cultures were taken of the abscess fluid. The area of inflammation was very limited in extent and was well contained so that the remainder of the abdomen and pelvis were free from any significant abnormality. The abscess was bordered by a loop of small intestine and its mesentery as well as the sidewall of the left lower quadrant and the sigmoid colon and its mesentery. The sigmoid colon proximal and distal to the affected area was soft and supple. FanGager (MyBrandz) Imaging Modality was able to visualize the course of the left ureter and help to keep it from the field of dissection. The imaging modality was also used with indocyanine green to evaluate perfusion of the anastomosis which showed excellent perfusion of the ends of the bowel both before and after anastomosis creation. DESCRIPTION OF PROCEDURE After informed consent was obtained the patient was taken to the operating room and placed in low lithotomy position. Originally cystoscopy with ureteral stent placement was performed by Dr. Iain Arredondo. Please see his separate operative note. Following this the patient was kept in low lithotomy position and the patient's abdomen was prepped and draped in the usual sterile fashion. A lower midline incision was created with extension to just above the umbilicus to the right of the umbilicus. Electrocautery was used to dissect down through the subcutaneous tissue and fascia. The peritoneum was entered and the remainder of the fascia was divided down to the pubic symphysis and up to the extent of the skin incision superiorly. An Evangelista wound protector was placed along with a Bookwalter retractor for exposure. Attention was turned to the inflamed sigmoid colon and the tissues surrounding the abscess cavity. Predominately blunt dissection was performed to free the small bowel loop and its mesentery off of the sigmoid colon. A pocket of purulent material was encountered and a swab was taken and was sent to the lab for analysis. The small bowel was inspected and was found to be viable and without injury from dissection. The course of the left and right ureter was inspected with the Nutshell Advanced Imaging Modality. Following identification of the ureters, the sigmoid colon was mobilized and dissection was continued along the white line of Toldt to mobilize the descending colon. This gained a significant amount of length. A window was made in the mesentery of the sigmoid colon both proximally and distally beyond the area of significant inflammation where the bowel appeared healthy. Umbilical tapes were used to hold these positions. The bowel was inspected for the feasibility of a [id number] functional end-to- end anastomosis and this did appear to be possible without tension with creation of a 5-cm anastomosis. To allow more mobilization of the rectum the peritoneum was divided on the right and left which did gain additional length. The sigmoid colon was divided with a TLC75 stapler at the previously selected sites. The mesentery was divided between clamps and the edge of the mesentery was ligated with 0-Vicryl ties. Care was taken not to go deep into the mesentery to help preserve perfusion. Perfusion was then checked with an injection of indocyanine green and the Nutshell camera system. Once excellent perfusion was verified, the abdomen was irrigated with copious saline and was suctioned free of fluid. When hemostasis was assured, the course of the left ureter was confirmed and was still found to be out of the field of dissection. The area around the bowel was draped with towels and the corners of the staple lines were cut off. A reload of the TLC75 stapler was utilized with one limb of the stapler in each of the bowel loops. Only 5 cm of the stapler was advanced into the colon prior to firing along the antimesenteric border. The staple lines were offset after an area of the bowel wall with a diverticulum was excised. The common enterotomy was closed with a firing of a TX60B stapler. The crotch of the anastomosis was reinforced with the two 3-0 Vicryl sutures. The anastomosis was palpated and was widely patent. The mesenteric defect was closed using a running 3-0 PDS suture. Perfusion of the bowel of the anastomosis was checked using the Nutshell camera system and indocyanine green. Once adequate perfusion was verified the omentum was draped over the anastomosis between the anastomosis and the left fallopian tube and pelvic ligaments. Attention was then turned to closure of the abdominal cavity. New instruments were used and the entire surgical team changed gown and gloves. The abdomen was then redraped. The abdominal incision was closed with running #1 PDS suture. The base of the umbilicus had been divided to facilitate closure of the fascia. The umbilicus was tacked back to the fascia with a [id number] stitch of 3-0 Vicryl. Hemostasis within the subcutaneous space was achieved with electrocautery and after hemostasis was assured the skin was closed with skin ashly. A sterile dressing was applied. Please note, Dr. Diaz was present throughout the entire operation and provided critical assistance to help with exposure during the case along with creation of the anastomosis. ODILIA
[2017-07-25] MEDS: ESZOPICLONE 3 MG TABLET PO SCH (22:05)
[2017-07-25] MEDS: ONDANSETRON 4 MG/2 ML INJECTION IVP PRN (22:11)
[2017-07-25] MEDS: CETIRIZINE 10 MG TABLET PO SCH (22:33)
[2017-07-26] MEDS: MetroNIDAZOLE PB 500 MG/100 ML BAG IV SCH ×3 (04:45→20:07)
[2017-07-26] MEDS: ACETAMINOPHEN 500 MG TABLET PO SCH ×3 (06:25→21:44)
[2017-07-26] MEDS: LR 1,000 ML IV SCH ×3 (07:23→19:27)
[2017-07-26] MEDS: SERTRALINE 50 MG TABLET PO SCH (08:49)
[2017-07-26] MEDS: DOCUSATE SODIUM 100 MG CAPSULE PO SCH ×2 (08:49→20:08)
[2017-07-26] MEDS: ENOXAPARIN 40 MG/0.4 ML INJECTION SQ SCH (08:50)
[2017-07-26] MEDS: KETOROLAC 30 MG/ML INJECTION IVP PRN ×3 (08:52→21:53)
[2017-07-26] MEDS: LEVOFLOXACIN PB 750 MG/150 ML BAG IV SCH (08:56)
[2017-07-26] MEDS: CETIRIZINE 10 MG TABLET PO SCH (20:08)
[2017-07-26] MEDS: ESZOPICLONE 3 MG TABLET PO SCH (20:08)
[2017-07-27] MEDS: HYDROMORPHONE 2 MG/ML INJECTION IVP PRN ×2 (03:16→23:00)
[2017-07-27] MEDS: MetroNIDAZOLE PB 500 MG/100 ML BAG IV SCH ×3 (04:09→20:24)
[2017-07-27] MEDS: ACETAMINOPHEN 500 MG TABLET PO SCH ×2 (05:43→14:13)
[2017-07-27] MEDS: DOCUSATE SODIUM 100 MG CAPSULE PO SCH ×2 (08:43→22:09)
[2017-07-27] MEDS: ENOXAPARIN 40 MG/0.4 ML INJECTION SQ SCH (08:44)
[2017-07-27] MEDS: LEVOFLOXACIN PB 750 MG/150 ML BAG IV SCH (08:44)
[2017-07-27] MEDS: SERTRALINE 50 MG TABLET PO SCH (08:44)
[2017-07-27] MEDS: KETOROLAC 30 MG/ML INJECTION IVP PRN (08:56)
--- NOTE | 2017-07-27 10:27 | Progress Note ---
DATE OF VISIT 07/26/2017 REASON FOR VISIT Postoperative followup. SUBJECTIVE Jeremy is doing very well. She did have some nausea overnight, but she slept well. She has been using some of her TEMPERER but mostly the scheduled Tylenol. She has been ambulating well. She has been trying to drink well. She denies any nausea. She passed a small amount of flatus a few minutes ago. OBJECTIVE VITAL SIGNS: Afebrile with stable vitals. ABDOMEN: Soft, appropriately tender. Her dressing was changed and her incision is clean, dry and intact. ASSESSMENT 1. Postop day #2 status post sigmoid colon resection with anastomosis. 2. Anxiety - chronic. 3. Hypercholesterolemia - chronic. PLAN 1. Continue with full liquid diet but allow toast and crackers. 2. Decrease IV fluids to 75 ml/hour. 3. DC Wright catheter since hematuria has resolved. 4. Continue TEMPERER until oral intake improves. 5. Allow showers beginning tomorrow. 6. Recheck lab in the morning. ODILIA
[2017-07-27] MEDS ORDERED: SCOPOLAMINE PATCH REMOVAL TD SCH (11:15)
[2017-07-27] MEDS: LR 1,000 ML IV SCH (13:12)
[2017-07-27] MEDS ORDERED: ACETAMINOPHEN 325 MG TABLET PO PRN (17:49)
[2017-07-27] MEDS: IBUPROFEN 800 MG TABLET PO PRN (19:20)
[2017-07-27] MEDS: ONDANSETRON 4 MG/2 ML INJECTION IVP PRN (19:31)
[2017-07-27] MEDS: NS FLUSH BAG 500ml IV PRN (20:23)
[2017-07-27] MEDS: CETIRIZINE 10 MG TABLET PO SCH (22:09)
[2017-07-27] MEDS: ESZOPICLONE 3 MG TABLET PO SCH (22:09)
[2017-07-27] MEDS: METOCLOPRAMIDE 10mg/2ml INJECTION IVP PRN (22:59)
[2017-07-28] MEDS: MetroNIDAZOLE PB 500 MG/100 ML BAG IV SCH ×3 (04:41→20:29)
--- NOTE | 2017-07-28 07:40 | Progress Note ---
DATE OF VISIT 07/27/2017 SUBJECTIVE Jeremy is doing well this evening. She has been ambulating. She feels like her pain has been controlled. She has needed a little bit of oxygen when resting. She has been tolerating her full liquid diet well. OBJECTIVE Afebrile with stable vitals on room air mostly GENERAL: The patient is awake, alert, in no acute distress. ABDOMEN: Dressing is clean, dry and intact. ASSESSMENT 1. Postop day #3 status post sigmoid colon resection with anastomosis. 2. Anxiety - chronic, controlled. 3. Hypercholesterolemia - chronic, controlled. PLAN 1. Advance to regular diet. 2. Hep-lock IV. 3. Discontinue CLASSIFIED ADVERTISING MANAGER and change to oral intake. MTDD
[2017-07-28] MEDS: DOCUSATE SODIUM 100 MG CAPSULE PO SCH ×2 (08:43→20:30)
[2017-07-28] MEDS: METOCLOPRAMIDE 10mg/2ml INJECTION IVP PRN ×2 (08:47→19:53)
[2017-07-28] MEDS: NS FLUSH BAG 500ml IV PRN (09:02)
[2017-07-28] MEDS: LEVOFLOXACIN PB 750 MG/150 ML BAG IV SCH (09:03)
[2017-07-28] MEDS: ENOXAPARIN 40 MG/0.4 ML INJECTION SQ SCH (09:04)
[2017-07-28] MEDS: HYDROMORPHONE 2 MG/ML INJECTION IVP PRN (09:19)
[2017-07-28] MEDS: SERTRALINE 50 MG TABLET PO SCH (11:05)
[2017-07-28] MEDS: IBUPROFEN 800 MG TABLET PO PRN ×2 (11:05→21:10)
[2017-07-28] MEDS: SALINE FLUSH 10ml SYRINGE IV PRN ×2 (14:03→19:54)
[2017-07-28] MEDS: MAG-AL + SIM ORAL LIQUID 30ml PO PRN ×2 (19:36→23:02)
[2017-07-28] MEDS: CETIRIZINE 10 MG TABLET PO SCH (20:30)
--- NOTE | 2017-07-28 20:30 | Progress Note ---
DATE 07/28/2017 REASON FOR VISIT Postoperative followup. SUBJECTIVE Jeremy is doing well though she had some severe nausea earlier today. This resolved with antiemetics. She feels like she may have eaten too much. She has been ambulating. She has only been using Tylenol and ibuprofen. She has been having some stool output but it is mostly with explosive significant flatus. OBJECTIVE VITAL SIGNS: Afebrile with stable vitals on room air. GENERAL: The patient is awake, alert, in no acute distress. ASSESSMENT 1. Postop day #4 status post sigmoid colon resection with anastomosis. 2. Anxiety - chronic. 3. Hypercholesterolemia - chronic. PLAN 1. Continue to monitor clinical progress and await improved bowel function. 2. Reevaluate for potential discharge tomorrow. With her nausea today I do not think she is ready for dismissal. ODILIA
[2017-07-29] MEDS: ESZOPICLONE 3 MG TABLET PO SCH ×2 (00:18→20:10)
[2017-07-29] MEDS: ONDANSETRON 4 MG/2 ML INJECTION IVP PRN ×3 (00:18→19:33)
[2017-07-29] MEDS: MetroNIDAZOLE PB 500 MG/100 ML BAG IV SCH ×3 (04:11→19:35)
[2017-07-29] MEDS: SERTRALINE 50 MG TABLET PO SCH (08:16)
[2017-07-29] MEDS: DOCUSATE SODIUM 100 MG CAPSULE PO SCH ×2 (08:16→20:09)
[2017-07-29] MEDS: ENOXAPARIN 40 MG/0.4 ML INJECTION SQ SCH (08:17)
[2017-07-29] MEDS: LEVOFLOXACIN PB 750 MG/150 ML BAG IV SCH (08:17)
[2017-07-29] MEDS: HYDROCODONE/APAP 5mg/325mg TABLET PO PRN ×3 (10:02→20:09)
[2017-07-29 14:18] VITALS: RESP 16
[2017-07-29] MEDS: MAG-AL + SIM ORAL LIQUID 30ml PO PRN ×2 (14:44→19:30)
[2017-07-29 19:41] VITALS: BP 133/69; PULSE 96; TEMP 97.9; O2SAT 96
--- NOTE | 2017-07-29 19:41 | Discharge Instructions ---
Discharge Plan - Med Rec/Dispo Referrals/Follow Up: Bonnie Herrera MD [Family Provider] - Prescriptions: New Acetaminophen [Tylenol] 325 - 650 mg PO Q5H PRN tablet PRN Reason: Discomfort MetroNIDAZOLE [Flagyl] 500 mg PO Q8H #21 tab Ondansetron Odt [Zofran Po] 4 mg PO Q6H #14 tab Levofloxacin [Levaquin] 750 mg PO DAILY #7 tab Continue Docusate Sodium [Colace] 100 mg PO BID capsule Ibuprofen [Motrin] 600 mg PO TID tablet Acetaminophen [Tylenol] 1,000 mg PO TID tablet Hydrocodone/APAP 5/325 [[place] 5/325] 1 tab PO Q6HPRN PRN #20 tab PRN Reason: Pain doxycycline monohydrate 50 mg capsule 50 mg PO HS 30 Days #30 Zyrtec (Cetirizine) 10 mg tablet 10 mg PO HS Zoloft (sertraline) 50 mg tablet 50 mg PO Q24H #90 tab Naprosyn (Naproxen) 500 mg tablet 500 mg PO Q12H PRN #30 tab PRN Reason: pain, moderate Xanax (alprazolam) 0.25 mg tablet 0.25 mg PO HS PRN #20 tab PRN Reason: insomnia omega-3 fatty acids 500 mg capsule 1,000 mg PO HS #0 cap eszopiclone 3 mg tablet 0.75 mg PO HS #15 tab Diflucan (fluconazole) 150 mg tablet 150 mg PO .COMPLEX #2 tab
[2017-07-29] MEDS: CETIRIZINE 10 MG TABLET PO SCH (20:09)
--- NOTE | 2017-08-06 07:19 | Progress Note ---
DATE OF VISIT 07/29/2017 REASON FOR VISIT Postoperative followup. SUBJECTIVE Jeremy is doing well today. She does feel like she is ready for dismissal and has had much less nausea today. OBJECTIVE Afebrile with stable vitals on room air. ABDOMEN: Soft, appropriately tender. Her incision is clean, dry and intact. ASSESSMENT 1. Postop day #5 status post exploratory laparotomy with sigmoid colon resection and anastomosis. 2. Anxiety - chronic. 3. Hypercholesterolemia - chronic. PLAN 1. Dismiss home. 2. See discharge instructions. MTDD
--- NOTE | 2017-08-06 15:00 | Discharge Summary ---
ATTENDING PHYSICIAN Baldemar Newton MD REASON FOR ADMISSION Scheduled surgery. DISCHARGE DIAGNOSES 1. Chronic sigmoid diverticulitis with perforation and chronic intra-abdominal abscess. 2. Anxiety - chronic. 3. Hypercholesterolemia - chronic. PROCEDURES 1. The patient underwent exploratory laparotomy with segmental sigmoid colon resection with [id number] functional end-to-end stapled anastomosis on [address] Newton with the assistance of Dr. Diaz. 2. The patient underwent placement of bilateral lighted ureteral stents by Dr. Iain Arredondo on 07/24/2017. CONSULTATIONS None - Dr. Iain Arredondo did perform his brief procedure prior to her larger surgical case but did not follow along with the patient. LABORATORY DATA See Electronic Medical Record. HOSPITAL COURSE The patient was admitted and underwent scheduled surgery. She did have ureteral stents placed by Dr. Arredondo prior to her sigmoid colon resection. At the time of surgery it was felt that her area of inflammation and chronic abscess was well contained and therefore after segmental resection the two ends of the bowel appeared healthy enough to perform an anastomosis. Following surgery she was transferred to the floor and was given a Dilaudid ROLLING MACHINE TENDER for pain control. On postop day #1 she had been doing well other than some itching that was treated with Benadryl. She had tolerated a clear liquid diet. She was using as little of her ROLLING MACHINE TENDER as possible. On postop day #2 the patient was advanced to a full liquid diet. She had had some nausea overnight but had been ambulating well. She was still drinking well. She was passing some minimal flatus. Her diet was advanced slightly to allow toast and crackers and her IV fluids were decreased. Her Wright catheter was removed. On postop day #3 the patient was doing well. She was still needing some oxygen , but had tolerated a full liquid diet well so she was advanced to a regular diet. She had been started on her home medications. On postop day #4 the patient had tolerated a regular diet somewhat but also had some severe nausea that required antiemetics. She had weaned down to only using Tylenol and ibuprofen. She was having some stool output. She was kept again given her nausea. On postop day #5 the patient was doing well and was ready for hospital dismissal. DISCHARGE INSTRUCTIONS Diet: Regular diet as tolerated. Activity: No strenuous activity or lifting over 15 pounds for a month following surgery. Wound care: The patient may shower but should not take any tub baths for 2 weeks. FOLLOWUP The patient should follow up with Dr. Newton approximately 2 weeks after surgery for staple removal. MEDICATIONS See discharge medical reconciliation. ODILIA
== END 2017-07-29 21:15 | disposition home or self-care (01) | DRG 330 ==
LOC: EDACCT# → ED 01:40 → SRG 02:50
PROVIDERS: ADMIT Surgery; ATTEND Surgery